=== PATIENT | female | born 1990 | race Caucasian/White ===

== ENCOUNTER → 2019-10-27 11:43 | Outpatient (CLI) | payer OTHER, SELFPAY ==
[2019-10-28 13:24] LABS: Strep Grp B PCR POS for Grp B Strep
== END ==
PROVIDERS: Visit Provider Obstetrics & Gynecology
DX: Z34.03 Encounter for supervision of normal first pregnancy, third trimester (principal); Z3A.36 36 weeks gestation of pregnancy
CPT/HCPCS: 87186; 87653

== ENCOUNTER 2019-11-19 11:40 | Outpatient (CLI) | payer OTHER, SELFPAY | END 2019-11-19 12:20 | disposition home or self-care (01) | LOC: LABOR 11:44 → OB 11-22 11:10 | PROVIDERS: Referring Provider Obstetrics & Gynecology; Visit Provider Obstetrics & Gynecology | DX: O36.8130 Decreased fetal movements, third trimester, not applicable or unspecified (principal); Z3A.39 39 weeks gestation of pregnancy | CPT/HCPCS: 59025; G0378; G0379 ==

== ENCOUNTER 2019-11-24 02:09 | Inpatient (IN) | payer OTHER, SELFPAY ==
[2019-11-24] MEDS: LACTATED RINGERS 1,000 ML 100 ML IV (02:39)
[2019-11-24] MEDS: CEFAZOLIN 2 GM/100 ML FROZ.PIGGY IV (02:40)
[2019-11-24] MEDS: fentaNYL 100 MCG/2 ML INJ 50 MCG IV (03:05)
[2019-11-24 03:09] LABS: Hematocrit 37.1 % (36-46); Hemoglobin 12.5 g/dL (12.0-16.0); Mean Corpuscular HGB Conc 33.6 % (30-36); Mean Corpuscular Hemoglobin 30.9 PG (26-34); Mean Corpuscular Volume 91.9 fL (80-100); Platelet Count 283 X10^3/uL (150-400); Red Blood Cell Count 4.04 X10^6/uL (4.0-5.2); Red Cell Distribution Width 13.4 % (11.6-14.8)
[2019-11-24 03:11] LABS: Add Manual Diff / Slide Review YES
--- NOTE | 2019-11-24 05:37 | P.HPOB_ITS ---
OB HPI History of Present Condition Chief complaint: EVAL OF LABOR Narrative: Viv Salamanca is a 29 year old G1 female at 40 weeks who presented reporting a gush of fluid, occurred at 0130. Contractions started shortly after and she became uncomfortable. has been uncomplicated. Evaluation Evaluation Laboratory results: Laboratory Tests 11/24/19 11/24/19 02:50 02:50 WBC 10.0 RBC 4.04 Hgb 12.5 Hct 37.1 MCV 91.9 MCH 30.9 MCHC 33.6 RDW 13.4 Plt Count 283 Neut % (Auto) Not Reportable Lymph % (Auto) Not Reportable [place] % (Auto) Not Reportable Eos % (Auto) Not Reportable Baso % (Auto) Not Reportable Lymph # (Auto) Not Reportable [place] # (Auto) Not Reportable Baso # (Auto) Not Reportable Blood Type A Positive Antibody Screen Negative [facility] Medical History Abnormal Pap smear of cervix (Inactive ~2011) Allergies (Chronic) Asthma (Chronic ~2001) Chicken pox (Resolved ~1997) Depression (Acute ~2010) Eczema (Chronic) Surgical History History of colposcopy (Acute ~2013) Hx of LASIK (Acute ~2013) [place] teeth extracted (Acute) Family History (Updated 10/17/19 @ 19:17 by Aislinn Davila) Mother Depression Grandmother Breast cancer Social History marital status: details: John Salamanca [phone] household members: spouse lives independently: Yes special yancy needs: No do you feel safe at home: Yes Smoking Status: Never smoker alcohol intake: former substance use type: does not use well-balanced diet: daily or most days Meds Home Medications and Allergies Home Medications Medication Instructions Recorded Confirmed Type prenat.vits,bhupendra,dxs-tnlg-folkm 1 tab PO DAILY 09/29/19 11/24/19 History albuterol sulfate 90 mcg/actuation 2 inhalation INHALATION Q4-6H PRN 10/27/19 11/19/19 Rx breath activated powder inhaler #1 each Allergies Allergy/AdvReac Type Severity Reaction Status Date / Time amoxicillin Allergy Verified 11/24/19 02:29 Review of Systems Review of Systems Narrative: Denies shortness of breath. Exam Vital Signs (past 8 hours): Afebrile BP 134/84 Narrative Exam Narrative: General: Well-appearing female, comfortable with her epidural Cervix 6 cm/90 on admission, now complete/1+ station/VANESSA position Objective Labs Result Diagrams: 11/24/19 02:50 Labs: Laboratory Results - last 24 hr 11/24/19 11/24/19 02:50 02:50 WBC 10.0 RBC 4.04 Hgb 12.5 Hct 37.1 MCV 91.9 MCH 30.9 MCHC 33.6 RDW 13.4 Plt Count 283 Neut % (Auto) Not Reportable Lymph % (Auto) Not Reportable [place] % (Auto) Not Reportable Eos % (Auto) Not Reportable Baso % (Auto) Not Reportable Lymph # (Auto) Not Reportable [place] # (Auto) Not Reportable Baso # (Auto) Not Reportable Blood Type A Positive Antibody Screen Negative Assessment and Plan Assessment and Plan Assessment and Plan narrative: Forty weeks, spontaneous rupture membranes, labor Patient admitted. She had desired an epidural and received this. Ancef given for GBS prophylaxis. Allow her to labor down some, and will begin pushing in about 30 minutes.
[2019-11-24 06:21] VITALS: BP 120/63
[2019-11-24 06:26] LABS: Neutrophils Absolute Manual 6200 /uL (3000-5900); RBC Morphology Normal Morphology; Total Cells Counted 100
--- NOTE | 2019-11-24 10:31 | PM.OBPRVD ---
Labor & Delivery Delivery date: 11/24/19 Intrapartal events: Deceleration (prolonged deceleration as was delivering head slowly over perineum. Outlet vacuum done to assist delivery.) Cervical ripening method: none Induction method: none Delivery monitor: external FHT Route of delivery: vacuum extraction Indication for instrumentation: nonreassuring FHR tracing Episiotomy description: None L&D Laceration Description: Perineal - 2nd Degree (repaired with #2 Vicryl and #3 chromic) Estimated blood loss (mL): 300 Anesthesia type: Epidural Complications: none Narrative: She progressed to completely dilated. She began pushing, pushed approximately 1.5 hours. She was close to but was pushing the vertex very slow through the perineum at this point. With the head oartly through the perineum, the FHR was staying 70-90. Consented to vacuum assistance with 1 contraction, rather than do an episiotomy. Baby was in VANESSA position with mild molding noted. Rajan had just been removed about 10 minutes prior. Vacuum was placed and with the next contraction with the patient pushing, with a pull through hooker 1 push, the vertex was brought to . Vacuum was removed and she continued to push and delivered the head over that contraction. Perineum was supported but was felt to give/tear with delivery of the head. No nuchal cord was present. Anterior followed by posterior shoulder were delivered without difficulty with the patient pushing, followed by the remainder of the body. A loop of cord was noted next to the shoulders during delivery. A baby boy was delivered at 0720. The baby was placed on the maternal abdomen, and after some minimal stimulation, gave a vigorous cry, appeared vigorous and was left on the maternal abdomen. After 1 minute, cord was clamped and then cut by the father. Placenta delivered spontaneously approximately 10 minutes later. She had normal bleeding after delivery of the placenta. She was given routine Pitocin IV. On inspection she had a partial third-degree perineal laceration which was repaired in the usual fashion with 3-0 chromic and 2-0 Vicryl. She did well and was left to recover in good condition. Weight of the baby is pending. Abbott Baby 1: gender: Male Presentation: vertex position: Right Occiput Anterior (Left occiput anterior) Placenta delivery description: Spontaneous and Normal Configuration cord vessel description: 3 Vessels score (1 min): 8 score (5 min): 9 Plan for aftercare: Left to recover in good condition.
[2019-11-24] MEDS: IBUPROFEN 600 MG TABLET PO ×2 (13:03→22:34)
[2019-11-25 04:21] VITALS: BP 120/63; PULSE 80; RESP 18; TEMP 37.1
[2019-11-25] MEDS: IBUPROFEN 600 MG TABLET PO ×2 (04:23→12:50)
--- NOTE | 2019-11-25 10:55 | PM.OBPN.1 ---
Subjective - OB Subjective Patient comments: no complaints [place] baby status: doing well feeding status: exclusively breast feeding Date Patient Seen: 11/25/19 Time Patient Seen: 10:56 Exam Vital Signs (past 8 hours): Afebrile, BP 111/77, Pulse 77, RR 18 Narrative Exam Narrative: General: Well-appearing female Abdomen: Soft, nontender, nondistended. Fundus U-1, firm, nontender Extremities: Trace pedal edema Objective Labs Result Diagrams: 11/24/19 02:50 Assessment & Plan Plan day: 1 plan OB: routine care Time Spent With Patient Time: 10 minutes Total time spent is greater than 50% in coordination of care (as documented) at patient's floor/unit and/or counseling patient: Time with patient: less than 15 minutes
[2019-11-25] MEDS: DOCUSATE 100 MG CAPSULE PO (12:49)
[2019-11-25] MEDS: DERMOPLAST SPRAY 20% 60 ML 1 SPRAY TOP (12:50)
--- NOTE | 2019-11-25 13:13 | P.DS_ITS ---
History of Present Illness History of Present Illness Date Patient Seen: 11/25/19 Time Patient Seen: 10:55 Chief complaint: Labor & Delivery Narrative: 29-year-old G1 female presented on 11/24/2019 at estimated gestational age 40 weeks reporting rupture membranes followed by uncomfortable contractions. Her had been uncomplicated. Discharge Providers Provider Date of admission: 11/24/19 02:09 Discharge Date: 11/25/19 Consults: 11/24/19 02:25 Consult to Anesthesiology Urgent Comment: Consulting Provider: Rukhsana Berkowitz Reason for consultation: labor pain management 11/25/19 12:47 Consult to [employer] Special Event Associate Routine Comment: Discharge provider: Rukhsana Berkowitz MD Summary Hospital Course Discharge Diagnosis: Term , delivered Secondary diagnosis, ruptured membranes, labor Hospital Course: She presented with grossly ruptured membranes and in labor. She had previously been 4 cm in the office and was now 6 cm on presentation. She received cephazolin for GBS prophylaxis. She continued to progress in spontaneous labor to completely dilated and had a spontaneous vaginal delivery of a viable male infant weighing 8 lb 12 oz with Apgars of 8 and 9. She had repair of a partial third-degree perineal laceration. She has had a normal course. The baby is better now, after having a frenulotomy of tongue due to being 'tongue tied'. Her lochia has remained normal. Her perineal discomfort is controlled with ibuprofen. She desires discharge to home today. Status at Discharge Cognitive/behavioral status at discharge: oriented Functional status at discharge: independent ambulation Overall status at discharge: patient is progressing back to baseline Time Spent with Patient Time spent: Less than 30 minutes Exam Vital Signs (past 8 hours): Afebrile, BP 118/80, pulse 82, RR 16 Narrative Exam Narrative: General: Well-appearing female Abdomen: Soft, nontender, nondistended. Fundus U -1, firm, nontender Extremities: Trace pedal edema Objective Labs Result Diagrams: 11/24/19 02:50 Discharge Plan Discharge Plan Patient Disposition: Home Discharge comment: Routine precautions given. Discharge orders & Medications Prescriptions: New acetaminophen 325 mg Tablet 650 mg PO Q6HR PRN (Reason: Pain, Mild (1-3)) Qty: 0 RF: 0 ibuprofen 800 mg tablet 800 mg PO Q8H PRN (Reason: pain) Qty: 90 RF: 1 Continued prenat.vits,bhupendra,bxi-zfwq-znihf Tablet 1 tab PO DAILY RF: 0 albuterol sulfate 90 mcg/actuation aerosol powdr breath activated 2 inhalation INHALATION Q4-6H PRN (Reason: shortness of breath or wheezing) Qty: 1 RF: 1 Follow up/Referrals: Rukhsana Berkowitz MD [Physician] - ( appointment in 6 weeks) Diet/Activity/Treatments Diet: Regular Activity: Nothing in the vagina, no tampons and no intercourse, for 6 weeks. No lifting anything heavier than the baby for 2 weeks Skin/Wound/Dressing Care Report to your healthcare provider any signs of infection, such as:: chills, fever and increased pain
== END 2019-11-25 17:00 | disposition home or self-care (01) | DRG 807 ==
PROVIDERS: Admitting Provider Obstetrics & Gynecology; Referring Provider Obstetrics & Gynecology; Visit Provider Obstetrics & Gynecology
DX: O70.1 Second degree perineal laceration during delivery (principal); Z37.0 Single live birth; Z3A.40 40 weeks gestation of pregnancy; O99.824 Streptococcus B carrier state complicating childbirth; O76 Abnormality in fetal heart rate and rhythm complicating labor and delivery
CPT/HCPCS: 01967; 59050; 59410; 85025; 86850; 86900; 86901; G0379; J0690; J3010

== ENCOUNTER → 2020-02-18 16:48 | Outpatient (CLI) | payer OTHER, SELFPAY ==
[2020-02-18 18:03] LABS: HCG Quantitative /Beta subunit < 2.4 mIU/mL
== END ==
PROVIDERS: Referring Provider Obstetrics & Gynecology; Visit Provider Obstetrics & Gynecology
DX: N92.6 Irregular menstruation, unspecified (principal)
CPT/HCPCS: 36415; 84702

== ENCOUNTER → 2020-05-06 10:49 | Outpatient (CLI) | payer OTHER, SELFPAY ==
[2020-05-06 12:12] LABS: Add Manual Diff / Slide Review NO; Basophils Absolute Auto 0 /uL (0-100); Basophils Percent Auto 0.3 % (0-2); Eosinophils Absolute Auto 100 /uL (0-450); Eosinophils Percent Auto 1.4 % (2-4); Hematocrit 42.5 % (36-46); Hemoglobin 14.3 g/dL (12.0-16.0); Lymphocytes Absolute Auto 1900 /uL (1100-4500); Lymphocytes Percent Auto 28.4 % (25-40); Mean Corpuscular HGB Conc 33.6 % (30-36); Mean Corpuscular Volume 89.4 fL (80-100); Monocytes Absolute Auto 300 /uL (0-900); Neutrophils Absolute Auto 4300 /uL (1500-7000); Neutrophils Percent Auto 64.9 % (50-75); Platelet Count 308 X10^3/uL (150-400); Red Blood Cell Count 4.75 X10^6/uL (4.0-5.2); Red Cell Distribution Width 13.7 % (11.6-14.8); White Blood Cell Count 6.6 X10^3/uL (4.5-11.0)
[2020-05-06 12:25] LABS: HEMOLYSIS < 15 (0-50); Iron 93 ug/dL (37-170)
[2020-05-06 12:27] LABS: Cholesterol 150 mg/dL (140-199); HDL Cholesterol 44 mg/dL (40-60); LDL Cholesterol Calculated 92 mg/dL (<100); Triglycerides 70 mg/dL (35-150)
[2020-05-06 12:36] LABS: Percent Iron Saturation 28 % (15-50); Total Iron Binding Capacity 338 ug/dL (265-497); Transferrin 269 mg/dL (206-381)
[2020-05-06 12:55] LABS: TSH w/ Reflex to FT4 1.01 uIU/mL (0.47-4.68)
== END ==
PROVIDERS: PCP Registered Nurse Diabetes Educator; Referring Provider Registered Nurse Diabetes Educator; Visit Provider Registered Nurse Diabetes Educator
DX: E66.9 Obesity, unspecified (principal); L65.9 Nonscarring hair loss, unspecified; R53.83 Other fatigue; Z86.2 Personal history of diseases of the blood and blood-forming organs and certain disorders involving the immune mechanism
CPT/HCPCS: 36415; 80061; 83540; 83550; 84443; 85025

== ENCOUNTER → 2020-09-18 12:34 | Outpatient (CLI) | payer OTHER, SELFPAY ==
[2020-09-18 13:42] LABS: Add Manual Diff / Slide Review NO; Basophils Absolute Auto 0 /uL (0-100); Basophils Percent Auto 0.2 % (0-2); Eosinophils Absolute Auto 100 /uL (0-450); Eosinophils Percent Auto 1.2 % (2-4); Hematocrit 38.4 % (36-46); Hemoglobin 13.2 g/dL (12.0-16.0); Lymphocytes Absolute Auto 2000 /uL (1100-4500); Mean Corpuscular HGB Conc 34.3 % (30-36); Mean Corpuscular Hemoglobin 30.7 PG (26-34); Mean Corpuscular Volume 89.3 fL (80-100); Monocytes Absolute Auto 700 /uL (0-900); Monocytes Percent Auto 6.9 % (3-14); Neutrophils Absolute Auto 7500 /uL (1500-7000); Neutrophils Percent Auto 72.7 % (50-75); Platelet Count 316 X10^3/uL (150-400); Red Blood Cell Count 4.29 X10^6/uL (4.0-5.2); Red Cell Distribution Width 13.2 % (11.6-14.8); White Blood Cell Count 10.3 X10^3/uL (4.5-11.0)
[2020-09-18 15:36] LABS: Appearance Urine UA CLEAR; Bilirubin Urine UA NEGATIVE (NEGATIVE); Color Urine UA YELLOW; Glucose Urine UA NEGATIVE (Negative); Ketones Urine UA NEGATIVE (NEGATIVE); Leukocyte Esterase Urine UA 1+ (NEGATIVE); Nitrite Urine UA NEGATIVE (Negative); Occult Blood Urine UA NEGATIVE (Negative); Protein Urine UA NEGATIVE (Negative); Specific Gravity Urine UA <=1.005 (1.000-1.035); Urobilinogen Urine UA 0.2 E.U./dL (0.2)
[2020-09-18 15:48] LABS: pH Urine UA 6.5 (4.5-8.0)
[2020-09-18 16:06] LABS: Bacteria Urine Occasional (0-1); RBC Urine 0-1/HPF (0-5/HPF); Squamous Epithelial Cell Urine 1-5 /HPF (0-5/HPF); WBC Urine 1-5/HPF (0-5/HPF)
[2020-09-18 17:27] LABS: Hepatitis B Surface Antigen NEGATIVE s/c (NEGATIVE); Rubella Antibody IgG 28.9 IU/mL (>15)
[2020-09-18 18:05] LABS: HIV 1 & 2 Ab/Ag 4th Gen Combo NEGATIVE (NEGATIVE); Hep C Virus Ab w/Reflex Quant NEGATIVE s/c (NEGATIVE)
[2020-09-19 09:06] LABS: RPR Screen Non Reactive (Non Reactive)
[2020-09-19 10:40] LABS: Varicella IgG Antibody 281 index (Immune >165)
== END ==
PROVIDERS: PCP Registered Nurse Diabetes Educator; Referring Provider Obstetrics & Gynecology; Visit Provider Obstetrics & Gynecology
DX: Z34.81 Encounter for supervision of other normal pregnancy, first trimester (principal)
CPT/HCPCS: 36415; 80055; 81003; 81015; 86787; 86803; 86850; 86900; 86901; 87086; 87389

== ENCOUNTER → 2020-11-15 14:50 | Outpatient (CLI) | payer OTHER, SELFPAY ==
[2020-11-17 19:38] LABS: AFP, Serum 26.6 ng/mL (.); Calc Gestational Age EDD (.); Estriol, Free 0.81 ng/mL (.); Inhibin A, Dimeric 108.08 pg/mL (.); Inhibin A, MoM 0.78 (.); Maternal Ethnicity Caucasian (.); Maternal Weight 185 lbs (.); Number of Fetuses No (.); OSBR Risk 1 IN 10000 (.); Results Report (.); Test Results *Screen Negative* (.); hCG, MoM 0.37 (.); hCG, Serum 12291 mIU/mL (.)
== END ==
PROVIDERS: PCP Registered Nurse Diabetes Educator; Referring Provider Obstetrics & Gynecology; Visit Provider Obstetrics & Gynecology
DX: Z34.82 Encounter for supervision of other normal pregnancy, second trimester (principal); Z3A.16 16 weeks gestation of pregnancy
CPT/HCPCS: 36415; 82105; 82677; 84702; 86336

== ENCOUNTER → 2020-12-26 15:13 | Outpatient (CLI) | payer OTHER, SELFPAY ==
--- NOTE | 2020-12-26 15:15 | DI.US.S_ITS ---
PROCEDURE: US OB >= 14 WEEKS FETUS INDICATIONS: ANATOMY OUTSIDE/PRIOR DATING DATA: Last menstrual period (LMP): Unknown . LMP-based estimated date of delivery (MARGI): Unknown . First dating scan (date and location): 09/18/20 . Estimated date of delivery (MARGI) from first dating scan: 04/30/21 . TECHNIQUE: Real-time scanning was performed of the fetus, with image documentation and biometric measurements. Endovaginal scanning: Not performed COMPARISON: [facility], , OB >= 14 WEEKS FETUS, 11/15/2020, 14:44. FINDINGS: General: A single living intrauterine gestation is present. Presentation: Variable. Placenta: Placental position is anterior , without previa. Amniotic fluid index: 13.8 cm, normal range is 5-24 cm. heart rate: 160 beats per minute. Maternal cervical canal: 7.8 cm long. Normal lower limit is 2.5 cm. biometrics: Biparietal diameter: 5.1 cm, 21 weeks 2 days Head circumference: 19.3 cm, 21 weeks 4 days Abdominal circumference: 16.4 cm, 21 weeks 3 days Femur length: 3.7 cm, 21 weeks 6 days Estimated gestational age from initial scan: 22 weeks 1 day Composite gestational age from present scan: 21 weeks 4 days Estimated weight and percentile: 440 g, 21st percentile Measurement variability for biometric dating: +/- 7 days from 14 weeks to 15 weeks 6 days gestation, +/- 10 days from 16 weeks to 21 weeks 6 days gestation, +/- 2 weeks from 22 weeks to 27 weeks 6 days gestation, +/- 3 weeks for 28 weeks gestation or later. weight reference: 4500 g or EFW >90/95% is considered macrosomia or large for gestational age. EFW <10% is small for gestational age. EFW 5% or less is considered intra-uterine growth restriction. Anatomic survey: Neuro: Ventricles are non-dilated at less than 10 mm. Cisterna magna is normal at 3-11 mm. Cerebellum is normal in size and morphology. Nuchal skin fold: Measures 8 mm, normal is less than 6 mm. Face: nose and lips not well seen sonographically secondary to position. Spine: No evidence for spina bifida. Heart: 4-chambered heart is present, with normal ventricular outflow tracts. Diaphragm: Diaphragm is intact. Stomach: Left-sided stomach is present. Kidneys: No hydronephrosis. Normal is less than 5 mm in 2nd trimester, less than 7 mm in 3rd trimester. Cord: 3-vessel cord has orthotopic insertion. Bladder: Normal in size. Extremities: All 4 extremities identified. IMPRESSION: Single living intrauterine fetus with expected interval growth. nose and lips not well seen secondary to position. Recommend follow-up. Thickened nuchal fold, although borderline age threshold for measurement. Please correlate clinically and with aneuploidy screening results. Dictated by: Miguel A Gunter M.D. on 12/27/2020 at 11:54 Approved by: Miguel A Gunter M.D. on 12/27/2020 at 12:03
== END ==
PROVIDERS: PCP Registered Nurse Diabetes Educator; Referring Provider Registered Nurse Diabetes Educator; Visit Provider Registered Nurse Diabetes Educator
DX: Z34.82 Encounter for supervision of other normal pregnancy, second trimester (principal); Z3A.21 21 weeks gestation of pregnancy
CPT/HCPCS: 76811

== ENCOUNTER → 2021-01-13 09:00 | Outpatient (CLI) | payer OTHER, SELFPAY ==
[2021-01-13 10:49] LABS: Hematocrit 34.6 % (36-46); Hemoglobin 11.8 g/dL (12.0-16.0)
[2021-01-13 11:01] LABS: GTT (PREG) 1 Hour PP 50gm Dose 123 mg/dL (76-139)
== END ==
PROVIDERS: PCP Registered Nurse Diabetes Educator; Referring Provider Obstetrics & Gynecology; Visit Provider Obstetrics & Gynecology
DX: Z34.82 Encounter for supervision of other normal pregnancy, second trimester (principal); Z3A.26 26 weeks gestation of pregnancy
CPT/HCPCS: 36415; 82950; 85014; 85018

== ENCOUNTER 2021-02-08 14:21 | Outpatient (CLI) | payer OTHER, SELFPAY ==
--- NOTE | 2021-02-09 06:45 | P.TNLD_ITS ---
Visit Information Visit Information Date of evaluation: 02/08/21 Primary OB Provider: Karoline Nunez Reason for Evaluation: Yes non-stress test non-stress test reason: decreased movement [facility] Medical History (Updated 09/13/20 @ 11:04 by Shaila Vaughn, RN) Abnormal Pap smear of cervix (~2011) Allergies Asthma (~2001) Bronchitis Chicken pox (~1997) Depression (~2010) Eczema History of anemia Stress incontinence Surgical History (Updated 09/13/20 @ 10:36 by Shaila Vaughn, LETTY) History of colposcopy (~2013) Hx of LASIK (~2013) [place] teeth extracted (~2014) Family History (Updated 09/13/20 @ 10:45 by Shaila Vaughn RN) Mother Depression Myocardial infarction Family history of uterine fibroid Grandmother Breast cancer Cancer Alcoholism Father S/P laparoscopic cholecystectomy Adopted Grandfather Myocardial infarction S/P quintuple vessel bypass Hyperlipidemia Grandmother Heavy smoker Family estrangement Grandfather Unknown whether patient has any health problems Family estrangement Brother Severe asthma Family/Other Family history of uterine fibroid Social History marital status: details: John Salamanca [phone] number of children: 1 household members: spouse and children lives independently: Yes pets and animals: No education level: college (BA Degree) occupational status: unemployed current occupational exposures/hazards: No special yancy needs: No do you feel safe at home: Yes Smoking Status: Never smoker second hand exposure: No alcohol intake: former (pre- : rare) substance use type: does not use well-balanced diet: daily or most days Evaluation Evaluation Baseline heart rate: 140 Variability: Moderate (11-25) monitor accelerations: Present Monitor Decelerations: Variable Contraction Frequency (minutes): 0 Category of Tracing: Appropriate for gestational age
== END 2021-02-08 15:40 | disposition home or self-care (01) ==
LOC: OB 02-13 07:34
PROVIDERS: PCP Registered Nurse Diabetes Educator; Referring Provider Obstetrics & Gynecology; Visit Provider Obstetrics & Gynecology
DX: O36.8130 Decreased fetal movements, third trimester, not applicable or unspecified (principal); Z3A.28 28 weeks gestation of pregnancy
CPT/HCPCS: 59025; G0378; G0379

== ENCOUNTER → 2021-03-26 17:46 | Outpatient (CLI) | payer OTHER, SELFPAY ==
[2021-03-27 11:11] LABS: Strep Grp B PCR NEG for Grp B Strep
== END ==
PROVIDERS: PCP Registered Nurse Diabetes Educator; Visit Provider Obstetrics & Gynecology
DX: Z34.83 Encounter for supervision of other normal pregnancy, third trimester (principal); Z3A.35 35 weeks gestation of pregnancy
CPT/HCPCS: 87653

== ENCOUNTER → 2021-04-24 14:31 | Outpatient (CLI) | payer OTHER, SELFPAY ==
[2021-04-24 15:28] LABS: COVID19 -Nasal RAPID Negative (Negative)
== END ==
PROVIDERS: PCP Registered Nurse Diabetes Educator; Visit Provider Obstetrics & Gynecology
DX: Z01.812 Encounter for preprocedural laboratory examination (principal); Z20.822 Contact with and (suspected) exposure to COVID-19
CPT/HCPCS: 87635

== ENCOUNTER 2021-04-25 06:46 | Inpatient (IN) | payer OTHER, SELFPAY ==
[2021-04-25] MEDS: OXYTOCIN PREMIX 30 UNIT/500 ML PLAST..BAG IV (08:23)
[2021-04-25] MEDS: LACTATED RINGERS 1,000 ML 100 ML IV ×2 (08:24→12:24)
[2021-04-25 08:31] LABS: Add Manual Diff / Slide Review NO; Basophils Absolute Auto 0 /uL (0-100); Basophils Percent Auto 0.2 % (0-2); Eosinophils Absolute Auto 100 /uL (0-450); Eosinophils Percent Auto 0.6 % (2-4); Hematocrit 35.5 % (36-46); Hemoglobin 12.2 g/dL (12.0-16.0); Lymphocytes Absolute Auto 1500 /uL (1100-4500); Lymphocytes Percent Auto 16.3 % (25-40); Mean Corpuscular HGB Conc 34.3 % (30-36); Mean Corpuscular Hemoglobin 32.4 PG (26-34); Mean Corpuscular Volume 94.4 fL (80-100); Monocytes Absolute Auto 500 /uL (0-900); Monocytes Percent Auto 5.1 % (3-14); Neutrophils Absolute Auto 7300 /uL (1500-7000); Neutrophils Percent Auto 77.8 % (50-75); Platelet Count 230 X10^3/uL (150-400); Red Blood Cell Count 3.76 X10^6/uL (4.0-5.2); Red Cell Distribution Width 13.6 % (11.6-14.8); White Blood Cell Count 9.3 X10^3/uL (4.5-11.0)
[2021-04-25 09:15] VITALS: BP 118/72
[2021-04-25] MEDS: FENT 2MCG/ML BUPIV 0.125% EPI 200 MCG/100 ML PLAST..BAG 12 MCG EPIDURAL (12:23)
--- NOTE | 2021-04-25 13:14 | PM.AN.REGBLK ---
Regional Block Pre-procedure Procedure: Continuous Lumbar Epidural for L&D Attending OB provider: Karoline Nunez PMH/ROS narrative: Hx: No personal or family history of anesthesia problems. PSH/Anesthesia history narrative: previous epidural worked well until the very end Exam narrative: MP2, RRR CTAB ASA Class: II Labs: Hct 35.5 % (36-46) L 04/25/21 08:10 Plt Count 230 X10^3/uL (150-400) 04/25/21 08:10 Medications: Current Medications Generic Name Dose Route Start Last Admin Trade Name Freq PRN Reason Stop Dose Admin Calcium Carbonate 1,000 mg 04/25/21 06:54 Calcium Carbonate 500 Mg Tab PO Q2HR PRN Dyspepsia Carboprost Tromethamine 250 mcg 04/25/21 06:54 Carboprost 250 Mcg/Ml Ampul IM Q90M PRN Bleeding Fentanyl 50 mcg 04/25/21 06:54 Fentanyl 100 Mcg/2 Ml Inj IV Q1H PRN Pain, Moderate (4-6) Lactated Ringer's 1,000 mls @ 100 mls/hr 04/25/21 07:00 04/25/21 12:24 Lactated Ringers IV 100 mls/hr CONT DAVE Administration Oxytocin/Lactated Ringer's 30 unit in 500 mls @ 200 mls/hr 04/25/21 06:54 Oxytocin Premix IV CONT PRN Bleeding Protocol Tranexamic Acid 1,000 mg/ 100 mls @ 200 mls/hr 04/25/21 06:54 Sodium Chloride IV NOW PRN Bleeding Oxytocin/Lactated Ringer's 30 unit in 500 mls @ 3 mls/hr 04/25/21 07:00 04/25/21 08:23 Oxytocin Premix IV 2 milliunit/min TITRATE DAVE 2 mls/hr Administration Protocol 3 MILLIUNIT/MIN Methylergonovine Maleate 0.2 mg 04/25/21 06:54 Methylergonovine 0.2 Mg Tablet PO Q6HR PRN Heavy Bleeding Methylergonovine Maleate 0.2 mg 04/25/21 06:54 Methylergonovine 0.2 Mg/Ml Vial IM NOW PRN Bleeding Metoclopramide HCl 10 mg 04/25/21 06:54 Metoclopramide 10 Mg/2 Ml Inj IV NOW PRN Nausea And Vomiting Misoprostol 800 mcg 04/25/21 06:54 Misoprostol 200 Mcg Tablet SC NOW PRN Bleeding Misoprostol 1,000 mcg 04/25/21 06:54 Misoprostol 200 Mcg Tablet SC NOW PRN Bleeding Misoprostol 400 mcg 04/25/21 06:54 Misoprostol 200 Mcg Tablet SL NOW PRN Bleeding Naloxone HCl 0.2 mg 04/25/21 06:54 Naloxone 0.4 Mg/Ml Vial IV Q2MIN PRN Opiate Reversal Ondansetron HCl 4 mg 04/25/21 06:54 Ondansetron 4 Mg/2 Ml Inj IV Q4HR PRN Nausea And Vomiting Oxytocin 10 unit 04/25/21 06:54 Oxytocin 10 Unit/Ml Vial IM NOW PRN Bleeding Allergies: Allergies Allergy/AdvReac Type Severity Reaction Status Date / Time amoxicillin Allergy Intermediate Hives to Verified 04/19/21 14:08 whole body Procedure Insertion date: 04/25/21 Insertion time: 12:20 Prep/Local: betadine x3 (chloroprep) and 1% lidocaine Interspace: L3-4 Patient position: sitting Needle: 18 gauge Jules Loss of resistance with: saline KEN at (cm): 6 Catheter placed at SKIN (cm): 11 Catheter in SPACE (cm): 5 Insertion: Yes CSF Initial Medications TEST DOSE time: 12:20 TEST DOSE: 1.5% lidocaine with epinephrine 1:200k (mL): 5 BOLUS DOSE time: 12:21 BOLUS DOSE (mL): 2 BOLUS DOSE med: other (10mcg fentanyl intrathecally, 90mcg fentanyl via epidural catheter) Infusion INFUSION: 0.0625% bupivacaine and with fentanyl 2 mcg/mL Initial rate (mL/hr): 12 Subsequent interventions: 1427: increased pain with contractions, previously working well. Has used PCEA. Bolus given 5mL bupi 0.25%. Post-procedure Anesthesia time START: 12:02 Anesthesia time END: 16:54 Post-procedure Anesthesia Assessment: No Anesthesia complications
--- NOTE | 2021-04-25 18:49 | PM.OBHP.1 ---
OB HPI Date/Time Date of admission: 04/25/21 Date Patient Seen: 04/25/21 Time Patient Seen: 08:00 History of Present Condition Chief complaint: OBS : 2 Para: 1 Estimated Date of Delivery: 04/30/21 Estimated Gestational Age (weeks): 39+2 Narrative: Viv Salamanca is a 30 year old female 2 para 1 at 39-,2/7 weeks gestation who presented for induction of labor. Indications Indication for induction OB: maternal discomfort History of Present care: good care, initiated at week # (8), number of visits (11) and pounds weight gain (35) Dating criteria: LMP confirmed by 1st trimester US Ultrasounds: normal 1st trimester US and normal mid trimester US Obstetrical complications: none Medical complications: none Preadmission Labs Blood type: A (+) positive -: Antibody screen: negative, GBS status: negative, HBsAG: negative, HIV: negative and RPR/VDLR: negative -: Chlamydia screen: not detected and Gonorrhea screen: not detected -: Rubella: immune and Varicella: immune HCT: 35.5 HCAB: negative PAP: Normal Quad screen: Normal Urine: Negative 1 hr GTT: 123 Prior (ies) History: 1 VAVD Evaluation Evaluation Baseline heart rate: 150 Variability: Moderate (11-25) monitor accelerations: Present Monitor Decelerations: Absent Uterine Contraction Intensity: Mild Status: Category l Cervical dilation (cm): 2 Cervical effacement (%): 75 station: -1 [facility] Medical History (Updated 09/13/20 @ 11:04 by Shaila Vaughn RN) Abnormal Pap smear of cervix (~2011) Allergies Asthma (~2001) Bronchitis Chicken pox (~1997) Depression (~2010) Eczema History of anemia Stress incontinence Surgical History (Updated 09/13/20 @ 10:36 by Shaila Vaughn RN) History of colposcopy (~2013) Hx of LASIK (~2013) [place] teeth extracted (~2014) Family History (Updated 09/13/20 @ 10:45 by Shaila Vaughn, LETTY) Mother Depression Myocardial infarction Family history of uterine fibroid Grandmother Breast cancer Cancer Alcoholism Father S/P laparoscopic cholecystectomy Adopted Grandfather Myocardial infarction S/P quintuple vessel bypass Hyperlipidemia Grandmother Heavy smoker Family estrangement Grandfather Unknown whether patient has any health problems Family estrangement Brother Severe asthma Family/Other Family history of uterine fibroid Social History marital status: details: John Salamanca [phone] number of children: 1 household members: spouse and children lives independently: Yes pets and animals: No education level: college (BA Degree) occupational status: unemployed current occupational exposures/hazards: No special yancy needs: No do you feel safe at home: Yes Smoking Status: Never smoker second hand exposure: No alcohol intake: former (pre- : rare) substance use type: does not use well-balanced diet: daily or most days Meds Home Medications and Allergies Home Medications Medication Instructions Recorded Confirmed Type prenat.vits,bhupendra,des-zyrn-uzedp 1 tab PO DAILY 09/29/19 04/25/21 History ascorbic acid (vitamin C) 500 mg 500 mg PO DAILY 09/13/20 04/25/21 History capsule,extended release Double Electric Breast Pump #1 ea 02/26/21 04/25/21 Rx Allergies Allergy/AdvReac Type Severity Reaction Status Date / Time amoxicillin Allergy Intermediate Hives to Verified 04/19/21 14:08 whole body Exam Narrative Exam Narrative: Generally: Patient is sitting up in bed, no acute distress Lungs: Clear to auscultation bilaterally Cardiovascular: Regular rate and rhythm Fundal height: 40 cm Estimated weight: 7-1/2 lb Extremities: Trace edema, 1+ DTRs Objective Labs Result Diagrams: 04/25/21 08:10 Labs: Laboratory Results - last 24 hr 04/25/21 04/25/21 08:10 08:10 WBC 9.3 RBC 3.76 L Hgb 12.2 Hct 35.5 L MCV 94.4 MCH 32.4 MCHC 34.3 RDW 13.6 Plt Count 230 Neut % (Auto) 77.8 H Lymph % (Auto) 16.3 L [place] % (Auto) 5.1 Eos % (Auto) 0.6 L Baso % (Auto) 0.2 Neut # (Auto) 7300 H Lymph # (Auto) 1500 [place] # (Auto) 500 Eos # (Auto) 100 Baso # (Auto) 0 Blood Type A Positive Antibody Screen Negative Assessment and Plan Assessment and Plan Assessment and Plan narrative: Assessment: 30-year-old 2 para 1 at 39-,2/7 weeks gestation for induction of labor Plan: Pitocin per protocol 2 Epidural as necessary Expected management to spontaneous vaginal delivery Time Spent with Patient Total time spent with greater than 50% in coordination of care (as documented) at patient's floor/unit and/or counseling patient:: less than 15 minutes
--- NOTE | 2021-04-25 19:00 | PM.OBPNLAB ---
Date/Time Date Patient Seen: 04/25/21 Time Patient Seen: 13:00 Pain Control Pain control: epidural Pelvic Exam Dilation (cm): 7 Effacement (%): 85 station: 0 Amniotic membrane status: Bulging Contractions Contractions on admission: none Monitor mode: External Pitocin rate (mU/min): 4 Contraction frequency (min): 3 Contraction duration (min): 1 Contraction pattern: Regular Contraction intensity: Moderate Status status: Category l Heart Rate Baseline: 145 Monitor Accelerations: Present Monitor Decelerations: Absent Monitor Variability: Moderate Assessment and Plan Assessment: active labor and induction ongoing Comments: Artificial rupture of membranes with minimal amount of clear fluid
--- NOTE | 2021-04-25 19:03 | P.PCNOB_ITS ---
Events: Labor Induction Labor & Delivery Delivery date: 04/25/21 Cervical ripening method: none Induction method: per pitocin protocol Delivery augmentation: rupture of membranes Delivery monitor: external FHT and external uterine Route of delivery: Episiotomy description: None L&D Laceration Description: Perineal - 2nd Degree and Vaginal - 2nd Degree Delivery repair: vicryl and chromic Estimated blood loss (mL): 250 Anesthesia Type: Epidural Complications: None Narrative: Patient complete and pushed with 2 contractions. At 4:54 p.m., a live female infant delivered spontaneously in the VANESSA presentation over an intact perineum. The remainder of the body delivered without difficulty and was placed on mom's abdomen. The cord was double clamped and cut after it stopped pulsing. Cord bloods were obtained. Pitocin was given in the IV fluids. The placenta delivered intact with a three-vessel cord at 5:03 p.m.. A second- degree vaginal/perineal laceration was repaired in the usual fashion. Hemostasis was achieved. Estimated blood loss 250 cc. Apgars 8 at 1 minute and 9 at 5 minutes. weight 7 lb 2 oz. . Epidural analgesia. Mom and stable to recovery. Baby 1: Infant gender: Female Presentation: vertex Position: Left Occiput Anterior Placenta delivery description: Spontaneous Cord Vessel Description: 3 Vessels and Clamped/Cut score (1 min): 8 score (5 min): 9 weight: 7 lb 2 oz Plan for aftercare: Routine care
[2021-04-25] MEDS: IBUPROFEN 600 MG TABLET PO (21:14)
[2021-04-26 06:21] LABS: Hematocrit 36.2 % (36-46); Hemoglobin 12.2 g/dL (12.0-16.0)
[2021-04-26] MEDS: IBUPROFEN 600 MG TABLET PO (07:28)
--- NOTE | 2021-04-26 08:10 | PM.OBDS.1 ---
Discharge Providers Provider Date of admission: 04/25/21 06:46 Discharge Date: 04/26/21 Primary care physician: MARCEL Estrada Consults: 04/26/21 19:05 Consult to Protective Services Case Worker Routine Comment: Discharge provider: Annalee Patel MD Summary Hospital Course Date Patient Seen: 04/26/21 Time Patient Seen: 08:11 Diagnoses: 38 week gestation with repeat section due to active labor Hospital Course: Patient arrived on Labor and delivery in active labor. She underwent a repeat low-transverse section. She is tolerating regular diet. She is urinating and ambulating well. Her pain is under control. She is breast-feeding without difficulty. She is passing gas. Patient will be taught to use the Lovenox injections prior to her discharge. Peripartum Data Infant Delivery Method: Section Procedures: Repeat low-transverse section complications: none 1: Gender: Female Disposition of : home Discharge Diagnosis (1) S/P repeat low transverse : Status: Acute Status at Discharge Cognitive/behavioral status at discharge: oriented Functional status at discharge: independent ambulation Overall status at discharge: patient is progressing back to baseline Time Spent with Patient Time attestation: Total time spent providing and/or coordinating discharge services: Time spent: Less than 30 minutes Objective Labs Result Diagrams: 04/26/21 06:05 Labs: Laboratory Results - last 24 hr 04/25/21 04/25/21 04/26/21 08:10 08:10 06:05 WBC 9.3 RBC 3.76 L Hgb 12.2 12.2 Hct 35.5 L 36.2 MCV 94.4 MCH 32.4 MCHC 34.3 RDW 13.6 Plt Count 230 Neut % (Auto) 77.8 H Lymph % (Auto) 16.3 L Bent % (Auto) 5.1 Eos % (Auto) 0.6 L Baso % (Auto) 0.2 Neut # (Auto) 7300 H Lymph # (Auto) 1500 Bent # (Auto) 500 Eos # (Auto) 100 Baso # (Auto) 0 Blood Type A Positive Antibody Screen Negative Exam Vital Signs (past 8 hours): Blood pressure 127/88, pulse of 80, temperature 98? Narrative Exam Narrative: Abdomen is soft, nontender. Uterus is firm, at U, nontender. Dressing is clean, dry, intact. Mild lochia. Extremities without edema and nontender. Patient is A positive, rubella immune, received Tdap in the 3rd trimester. Discharge Plan Discharge Plan Patient Disposition: Home Discharge orders & Medications Prescriptions: No Action prenat.vits,bhupendra,[id number] Tablet 1 tab PO DAILY RF: 0 (DME) Double Electric Breast Pump See Rx Instructions .Route .MEDSUPPLY Qty: 1 RF: 0 ascorbic acid (vitamin C) 500 mg capsule, extended release 500 mg PO DAILY RF: 0 Follow up/Referrals: Johan Rosa ARNP [Primary Care Provider] - Discharge Data Primary Care Provider: Johan Rosa
[2021-04-26] MEDS: DOCUSATE 100 MG CAPSULE PO (09:20)
[2021-04-26] MEDS: PRENATAL VIT,CALC/IRON/FOLIC 1 TABLET 1 TAB PO (09:20)
--- NOTE | 2021-04-29 12:53 | PM.OBDS.1 ---
Discharge Providers Provider Date of admission: 04/25/21 06:46 Discharge Date: 04/26/21 Primary care physician: MARCEL Estrada Consults: Anesthesia Discharge provider: Karoline Nunez MD Summary Hospital Course Date Patient Seen: 04/26/21 Time Patient Seen: 07:30 Diagnoses: 39-,2/7 weeks gestation Induction of labor with Pitocin Spontaneous vaginal delivery Second-degree vaginal/perineal laceration and repair Hospital Course: Patient is a 30-year-old 2 para 2 who presented for Pitocin induction of labor at 39-,2/7 weeks gestation on April 25, 2021. She was started on Pitocin. She received an epidural for pain management. Artificial rupture membranes was performed. She progressed to complete dilation and had a spontaneous vaginal delivery without complication. She had a second-degree vaginal/perineal laceration which was repaired. Her course was unremarkable and she was discharged home on day # 1 to follow up at 6 weeks. Peripartum Data Infant Delivery Method: Natural Vaginal Laceration Description: Perineal - 2nd Degree and Vaginal - 2nd Degree Episiotomy description: None Procedures: Pitocin induction of labor Epidural analgesia Artificial rupture of membranes Spontaneous vaginal delivery Second-degree vaginal/perineal laceration repair complications: none [place] 1: Gender: Female Disposition of : home Status at Discharge Cognitive/behavioral status at discharge: oriented Functional status at discharge: independent ambulation Overall status at discharge: patient is progressing back to baseline Time Spent with Patient Time attestation: Total time spent providing and/or coordinating discharge services: Time spent: Less than 30 minutes Objective Labs Result Diagrams: 04/26/21 06:05 Exam Narrative Exam Narrative: Generally: Patient is sitting up in bed, holding , no acute distress Fundus: Firm at U -2 Extremities: Negative Homans, no edema Discharge Plan Discharge Plan Patient Disposition: Home Provider Discharge Comment: Call with fever, chills, or bleeding vaginally more than a pad in an hour Ibuprofen 600 mg every 6 hours as needed for cramping Discharge orders & Medications Prescriptions: Continued prenat.vits,bhupendra,[id number] Tablet 1 tab PO DAILY RF: 0 (DME) Double Electric Breast Pump See Rx Instructions .Route .MEDSUPPLY Qty: 1 RF: 0 ascorbic acid (vitamin C) 500 mg capsule, extended release 500 mg PO DAILY RF: 0 Follow up/Referrals: Karoline Nunez MD [Physician] - 6 Weeks (Please follow up with Dr. Nunez on Friday, June 06 at 10:30AM. Please call the office with any questions or concerns. ) Diet/Activity/Treatments Diet: Regular Activity: Nothing in the vagina for 6 weeks Skin/Wound/Dressing Care Report to your healthcare provider any signs of infection, such as:: chills, fever, increased pain and unusual drainage Visit Report/Discharge Packet Instructions: DI for Labor and Delivery, Vaginal Discharge Data Primary Care Provider: Johan Rosa
== END 2021-04-26 15:00 | disposition home or self-care (01) | DRG 807 ==
PROVIDERS: Admitting Provider Obstetrics & Gynecology; PCP Registered Nurse Diabetes Educator; Referring Provider Obstetrics & Gynecology; Visit Provider Obstetrics & Gynecology
DX: O70.1 Second degree perineal laceration during delivery (principal); Z37.0 Single live birth; Z3A.39 39 weeks gestation of pregnancy
CPT/HCPCS: 01967; 36415; 59050; 59400; 85014; 85018; 85025; 86850; 86900; 86901; G0379; J2590